=== PATIENT | female | born 1980 | race Caucasian/White ===

== ENCOUNTER 2021-08-09 07:28 | Outpatient (CLI) | payer OTHER, SELFPAY ==
--- NOTE | ~2021-08-09 | MR_ITS ---
EXAMINATION: MR brain/brain stem wo/w con EXAM DATE: 08/09/2021 08:54 INDICATION: Concern for Trigeminal neuralgia. TECHNIQUE: Multi-sequential, multiplanar MR images of the brain, brainstem, internal auditory canals were obtained without contrast. Whole brain sagittal T1, axial diffusion, gradient echo (T2*), T1, T 2, FLAIR sequences obtained. High resolution coronal 3-D FIESTA, coronal T1 FSE, axial T1 FSPGR of t he internal auditory canals. Patient was then injected with 17 cc Multihance contrast intravenously. Postcontrast axial and coronal T1 weighted whole brain, axial and coronal high resolution T1 IAC seq uences obtained. There is no prior study for comparison. FINDINGS: Prepontine cistern, visualized portions of the 5th cranial nerves are unremarkable. Meckel' s caves are unremarkable. No evidence of mastoid or middle ear opacification. The 7th/8th cranial ne rve complexes are symmetric, normal in course and caliber. No cerebellopontine angle masses. [employer] ior fossa unremarkable. There are no areas of restricted diffusion to suggest acute infarction. There is no acute hemorrhage seen on the T2*, a hemosiderin sensitive sequence. No intraparenchymal brain mass. The ventricles a re normal in size. There are no extra-axial collections. Flow voids are seen in the cerebral arteri es on the T2-weighted sequences consistent with their expected patency. The orbits are unremarkable. Soft tissue is unremarkable. IMPRESSION: Unremarkable brain/brainstem exam. Reviewed, dictated and finalized at location A.
[2021-08-09 08:05] LABS: Estimated Glomerular Filt Rate > 60
== END 2021-08-09 07:29 | disposition home or self-care (01) ==
PROVIDERS: PCP Internal Medicine; Visit Provider Clinical Nurse Specialist
DX: R68.84 Jaw pain (principal)
CPT/HCPCS: 70553; A9577